=== PATIENT | male | born 1995 | race Two or more races ===

== ENCOUNTER 2024-02-23 09:40 | Emergency (ER) | payer MEDICAID ==
[~2024-02-23] VITALS: Ht 182.9 cm; Wt 64.9 kg
[2024-02-23 10:33] VITALS: BP 127/85; TEMP 99; O2SAT 99
[2024-02-23] MEDS ORDERED: AMOX500C2 PO (10:49)
[2024-02-23] MEDS ORDERED: IBUPROFEN 600 MG TABLET ONE (11:24)
[2024-02-23] MEDS ORDERED: AMOXICILLIN TRIHYDRATE 250 MG CAPSULE ONE (11:24)
[2024-02-23] MEDS: IBUPROFEN 600 MG TABLET PO ONE (11:31)
[2024-02-23] MEDS: AMOXICILLIN TRIHYDRATE 500 MG CAPSULE PO ONE (11:31)
== END 2024-02-23 11:49 ==
LOC: ER 09:47
DX: J02.9 Acute pharyngitis, unspecified (principal); F17.200 Nicotine dependence, unspecified, uncomplicated